=== PATIENT | female | born 1985 | race Hispanic/Latino ===

== ENCOUNTER 2018-05-16 20:15 | Emergency (ER) | payer SELFPAY ==
[~2018-05-16] VITALS: Ht 162.6 cm; Wt 50.3 kg
[~2018-05-16 20:15] MED LIST: BENTYL20 MG; CHLORDIAZEPOXID25 MG PO; FLAGYL500 MG PO; PANTOPRAZOLE SO40 MG PO; zofran PO
[2018-05-16 21:29] LABS: BILIRUBIN,URINE NEGATIVE (NEGATIVE); CLARITY,URINE SL CLOUDY (CLEAR); COLOR,URINE YELLOW (YELLOW); KETONES,URINE NEGATIVE (NEGATIVE); LEUKOCYTE ESTERASE ,URINE 1+ (NEGATIVE); NITRITE,URINE POSITIVE (NEGATIVE); PREGNANCY TEST, URINE NEGATIVE (NEGATIVE); PROTEIN,URINE DIPSTICK TRACE (NEGATIVE); URINE UROBILINOGEN 0.2 mg/dL (0.2 - 1)
[2018-05-16] MEDS ORDERED: ONDANSETRON HCL 4 MG ORAL DISINTEGRATING TAB ONE (21:29)
[2018-05-16 21:41] LABS: BACTERIA,URINE MODERATE /HPF; EPITHELIAL CELLS,URINE MODERATE /LPF
[2018-05-16] MEDS ORDERED: ONDANSETRON HCL 4 MG ORAL DISINTEGRATING TAB PO ONE (21:45)
[2018-05-16] MEDS ORDERED: CEFTRIAXONE SOD 1 GM VIAL IM ONE (22:15)
[2018-05-16] MEDS ORDERED: ACETAMINOPHEN 325 MG TAB ONE (22:23)
== END 2018-05-16 22:47 | disposition home or self-care (01) ==
LOC: ER 20:15
DX: R30.0 Dysuria (principal); N30.91 Cystitis, unspecified with hematuria
CPT/HCPCS: 81001; 81025; 99283; J0696

== ENCOUNTER 2018-07-04 14:12 | Emergency (ER) | payer BC, OTHER ==
[~2018-07-04] VITALS: Ht 149.9 cm; Wt 52.2 kg
[2018-07-04] MEDS ORDERED: IBUPROFEN 600 MG TAB PO STA (14:29)
[2018-07-04] MEDS ORDERED: TETANUS/DIPHTHERIA TOX ADULT 0.5 ML SYR IM ONE (14:30)
[2018-07-04 16:23] VITALS: BP 129/85
--- OUTSIDE RECORDS SUMMARY | 2018-07-08 13:31 | XMS REPORT | Continuity of Care Document ---
Author Author [facility] Organization Interface Address Unknown Phone Unavailable Problems Problem Status Onset Date Classification Date Reported Comments Source Umbilical hernia without obstruction or gangrene 12/28/2017 03/27/2018 [facility] HERNIA REPAIR Active 10/15/2017 [facility] UNK Active 10/15/2017 [facility] Hypertrophic scar 03/27/2018 [facility] Anxiety disorder, unspecified 03/27/2018 [facility] Medications Medication Details Route Status Patient Instructions Ordering Provider Order Date Source tramadol hydrochloride 50 MG Oral Tablet 100 mg, Route: PO, Drug form: TAB, ONCE, Dosing Weight 55.455, kg, Start date: 12/19/17 10:53:00 CDT, Stop date: 12/19/17 10:53:00 CDT Inactive 12/19/2017 [facility] methocarbamol 500 mg oral tablet 500 mg=1 tab, PO, Q6H, PRN Spasms, X 7 day, # 28 tab, 0 Refill(s) No Longer Active 12/19/2017 [facility] Ondansetron 4 mg, 2 mL, Route: IVP, Drug form: INJ, ONCE, Dosing Weight 55.455, kg, PRN Nausea & Vomiting, Start date: 12/19/17 9:44:00 CDTNotes: (Same as: Zofran) MEDICATION WASTE Product Size: 4 mg Product Wasted: ___ mg Inactive 12/19/2017 [facility] Promethazine 6.25 mg, 0.25 mL, Route: IVPB, ONCE, Dosing Weight 55.455, kg, PRN Nausea & Vomiting, Start date: 12/19/17 9:44:00 CDTNotes: Do not give IV push. (Same as: Phenergan) Inactive 12/19/2017 [facility] Meperidine 12.5 mg, 0.5 mL, Route: IVP, Drug form: INJ, Q30Min, Dosing Weight 55.455, kg, PRN Other -See Comment, For shivering, Start date: 12/19/17 9:44:00 CDT, Duration: 2 doses or times, Stop date: Limited # of timesNotes: (Same as: Demerol) "Use Precaution in Elderly, Seizure disorders, and Renal impairment" Inactive 12/19/2017 [facility] Flumazenil 0.2 mg, 2 mL, Route: IVP, Drug form: INJ, PRN, Dosing Weight 55.455, kg, PRN Benzodiazepine Reversal, Initial dose, Start date: 12/19/17 9:44:00 CDT, Duration: 30 day, Stop date: 01/18/18 9:43:00 CDT Notes: (Same as: Romazicon) Inactive 12/19/2017 [facility] Naloxone 0.4 mg, 1 mL, Route: IVP, Drug form: INJ, Q2MIN, Dosing Weight 55.455, kg, PRN Narcotic Reversal, Start date: 12/19/17 9:44:00 CDT, Duration: 8 doses or times, Stop date: Limited # of timesNotes: Same as Narcan Inactive 12/19/2017 [facility] Diphenhydramine 12.5 mg, 0.25 mL, Route: IVP, Drug form: INJ, Q6H, Dosing Weight 55.455, kg, PRN Itching, Start date: 12/19/17 9:44:00 CDT, Duration: 30 day, Stop date: 01/18/18 9:43:00 CDTNotes: (Same as: Benadryl) Inactive 12/19/2017 [facility] Metoprolol 1 mg, 1 mL, Route: IVP, Drug form: INJ, Q5Min, Dosing Weight 55.455, kg, PRN Other -See Comment, Start date: 12/19/17 9:44:00 CDT, Duration: 5 doses or times, Stop date: Limited # of timesNotes: (Same as: Lopressor) Push over 2 minutes Inactive 12/19/2017 [facility] Morphine 2 mg, 2 mL, Route: IVP, Drug form: SOLN, Q5Min, Dosing Weight 55.455, kg, PRN Pain Score 4-6, Start date: 12/19/17 9:44:00 CDT, Duration: 5 doses or times, Stop date: Limited # of timesNotes: Preservative free. (Same as: Morphine Sulfate-PF) Inactive 12/19/2017 [facility] Dilaudid (ANES) Route: IV, Drug form: INJ, ONCE, Stop date: 12/19/17 9:28:00 CDT Inactive 12/19/2017 [facility] neostigmine (ANES) Route: IV, Drug form: INJ, ONCE, Stop date: 12/19/17 9:17:00 CDT Inactive 12/19/2017 [facility] glycopyrrolate (ANES) Route: IV, Drug form: INJ, ONCE, Stop date: 12/19/17 9:17:00 CDT Inactive 12/19/2017 [facility] ketOROLAC (ANES) IV, ONCE Inactive 12/19/2017 [facility] acetaminophen (ANES) Route: IV, Drug form: INJ, ONCE, Stop date: 12/19/17 8:22:00 CDT Inactive 12/19/2017 [facility] ondansetron (ANES) Route: IV, Drug form: INJ, ONCE, Stop date: 12/19/17 8:22:00 CDT Inactive 12/19/2017 [facility] dexamethasone (ANES) Route: IV, Drug form: INJ, ONCE, Stop date: 12/19/17 8:22:00 CDT Inactive 12/19/2017 [facility] fentaNYL (ANES) Route: IV, Drug form: INJ, ONCE, Stop date: 12/19/17 8:12:00 CDT Inactive 12/19/2017 [facility] rocuronium (ANES) Route: IV, Drug form: INJ, ONCE, Stop date: 12/19/17 8:12:00 CDT Inactive 12/19/2017 [facility] lidocaine (ANES) Route: IV, Drug form: INJ, ONCE, Stop date: 12/19/17 8:12:00 CDT Inactive 12/19/2017 [facility] propofol (ANES) Route: IV, Drug form: INJ, ONCE, Stop date: 12/19/17 8:12:00 CDT Inactive 12/19/2017 [facility] ceFAZolin (ANES) Route: IV, Drug form: INJ, ONCE, Stop date: 12/19/17 8:07:00 CDT Inactive 12/19/2017 [facility] midazolam (ANES) Route: IV, Drug form: SOLN, ONCE, Stop date: 12/19/17 8:07:00 CDT Inactive 12/19/2017 [facility] ceFAZolin + Sodium Chloride 0.9% IV 100 mL 2 gm, Route: IVPB, PRE OP, Start date: 12/19/17 8:00:00 CDT, Duration: 1 doses or times, ABX Indication: Surgical ProphylaxisNotes: (Same As: Rima Tam) MEDICATION WASTE Product Size: 1000 mg Product Wasted: ___ mg Inactive 12/19/2017 [facility] gabapentin 300 MG Oral Capsule 300 mg, PO, TID, 0 Refill(s) Active 12/19/2017 [facility] minocycline 100 mg oral capsule 100 mg, PO, BID, 0 Refill(s) Active 12/19/2017 [facility] Ondansetron 4 MG Disintegrating Tablet [Zofran] 4 mg, PO, Q6H, 0 Refill(s) Active 12/19/2017 [facility] celecoxib 200 mg oral capsule 100 mg, PO, BID, 0 Refill(s) Active 12/19/2017 [facility] Lactated Ringers Injection IV (ANES) 1000 mL Route: IV, Total Volume: 1,000, Start date: 12/19/17 7:10:00 CDT, Stop date: 12/19/17 8:10:00 CDT Inactive 12/19/2017 [facility] Calcium Chloride 0.0014 MEQ/ML / Potassium Chloride 0.004 MEQ/ML / Sodium Chloride 0.103 MEQ/ML / Sodium Lactate 0.028 MEQ/ML Injectable Solution 1,000 mL, Rate: 25 ml/hr, Infuse over: 40 hr, Route: IV, Dosing Weight 55.455 kg, Total Volume: 1,000, Start date: 12/19/17 6:22:00 CDT, Duration: 30 day, Stop date: 01/18/18 6:21:00 CDT, 1.55, m2 Inactive 12/19/2017 [facility] Hydroxyzine 25 mg=1 tab, PO, Bedtime Active 12/06/2017 [facility] buPROPion 150 mg/12 hours (SR) oral tablet, extended release 150 mg=1 tab, PO, Daily, 0 Refill(s) Active 12/06/2017 [facility] Allergies, Adverse Reactions, Alerts Substance Category Reaction Severity Reaction type Status Date Reported Comments Source HYDROcodone Assertion Drug allergy Active [facility] Immunizations Immunization Date Given Site Status Last Updated Comments Source Results Order Name Results Value Reference Range Date Interpretation Comments Source URINE CHEM U Preg Negative (12/19/17 6:25 AM) Negative 12/19/2017 [facility] Vital Signs Vital Sign Value Date Comments Source Systolic (mm Hg) 106 12/19/2017 [facility] Diastolic (mm Hg) 71 12/19/2017 [facility] Respitory Rate 11 12/19/2017 [facility] Systolic (mm Hg) 109 12/19/2017 [facility] Diastolic (mm Hg) 73 12/19/2017 [facility] Respitory Rate 8 12/19/2017 [facility] Systolic (mm Hg) 112 12/19/2017 [facility] Diastolic (mm Hg) 75 12/19/2017 [facility] Respitory Rate 16 12/19/2017 [facility] BMI Calculated 23.88 12/06/2017 [facility] Height 152.4 cm 12/06/2017 [facility] Weight 55.455 12/06/2017 [facility] Heart Rate 82 12/06/2017 [facility] Temperature Oral (F) 98.2 F 12/06/2017 [facility] Encounters Location Location Details Encounter Type Encounter Number Reason For Visit Attending Provider ADM Date DC Date Status Source [facility] Day Surgery [id number] Jimmie Banerji 12/19/2017 12/19/2017 [facility] Procedures Procedure Code Date Perfomer Comments Source Operation [id number] 07/24/2014 [facility] Bilateral tubal ligation [id number] 01/21/2007 [facility]
== END 2018-07-04 16:30 | disposition home or self-care (01) ==
LOC: ER 14:12
DX: S80.872A Other superficial bite, left lower leg, initial encounter (principal); W54.0XXA Bitten by dog, initial encounter; F41.9 Anxiety disorder, unspecified; F32.9 Major depressive disorder, single episode, unspecified
CPT/HCPCS: 90471; 90714; 99283

== ENCOUNTER 2018-12-12 13:59 | Emergency (ER) | payer OTHER | END 2018-12-12 15:35 | disposition short-term general hospital (02) | LOC: ER 13:59 | DX: R06.02 Shortness of breath (principal) ==

== ENCOUNTER 2019-12-17 09:23 | Emergency (ER) | payer OTHER ==
[~2019-12-17] VITALS: Ht 149.9 cm; Wt 52.2 kg
--- OUTSIDE RECORDS SUMMARY | 2019-12-17 09:26 | XMS REPORT ---
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 Allergies, Adverse Reactions, Alerts Allergy Name Allergy Type Status Severity Reaction(s) Onset Date Inactive Date Treating Clinician Comments hydrocodone DA Active [place] 2019-02-11 00:00:00 acetaminophen DA Active [place] 2019-02-11 00:00:00 hydrocodone DA Active [place] 2015-06-28 00:00:00 acetaminophen DA Active [place] 2015-06-28 00:00:00 Medications This patient has no known medications. Results Test Description Test Time Test Comments Text Results Atomic Results Result Comments - CTA CHEST FOR PE 2019-12-14 19:23:00 Name: ELMIRA MARTIN [facility] : 1985 Age/S: 34 / F [address] [facility] Unit #: [id number] Loc: [place] [address] Phys: Nando St MD Acct: [id number] Dis Date: Status: REG ER PHONE #: [phone] Exam Date: 12/14/2019 1900 FAX #: [phone] Reason: short of breath, elevated dimer EXAMS: CPT CODE: [id number] [place] [id number] HISTORY: Shortness of breath and elevated d-dimer. COMPARISON: Chest x-ray from same day CTA CHEST: 3-D images. 100 mL of Isovue-370. Automated exposure control. Location: TH. No pulmonary embolism. Unremarkable aorta. Well- opacified SVC and the neck vasculature. Unremarkable thyroid glands. Esophageal wall is mildly thickened. Correlate for esophagitis. No pathologic adenopathy. Cardiac silhouette is mildly enlarged. No pericardial effusion. Visualized upper abdomen is unremarkable. The subcutaneous tissues and the musculature are appearance. No lytic or blastic lesions are noted within the bony skeleton. The lungs are clear of infiltrates, effusion or congestion. No bronchiectasis, honeycombing or fibrosis or endobronchial lesions. IMPRESSION: No pulmonary embolism. Unremarkable aorta. The lungs are clear. at 1923 Reported and signed by: Jhonatan Baron M.D. CC: Etta Aragon MD; Nando St MD Technologist:Silvino Ontiveros RT(R) CTDI: DLP: Trnscb Date/Time: 12/14/2019 (1922) [email or web address] Orig Print D/T: S: 12/14/2019 (1925) PAGE 1 Signed Report BASIC METABOLIC PANEL 2019-12-14 18:24:00 SODIUM (test code=NA) 138 mmol/L 135-148 POTASSIUM (test code=K) 3.8 mmol/L 3.5-5.1 CHLORIDE (test code=CL) 103 mmol/L 101-109 CARBON DIOXIDE (test code=CO2) 29.9 mmol/L 21-32 ANION GAP (test code=GAP) 9 mmol/L 10-20 GLUCOSE (test code=GLU) 105 mg/dL 74-106 BLOOD UREA NITROGEN (test code=BUN) 14 mg/dL 3-21 GLOMERULAR FILTRATION RATE (test code=GFR) > 60 mL/min >=60 Estimated GFR by using Modified MDRD formula.Chronic kidney disease is defined as either kidney damageor GFR <60 mL/min/1.73 m2 for >3 months. CREATININE (test code=CREAT) 0.96 mg/dL 0.55-1.3 BUN/CREATININE RATIO (test code=BUN/CREA) 14.6 10-20 CALCIUM (test code=CA) 8.5 mg/dL 8.4-10.2 HCG SERUM [id number] 18:24:00* Test Item Value Reference Range Comments HCG SERUM QUAL (test code=HCGQL) NEGATIVE NEGATIVE This HCGQL test is NOT applicable for MALE patients.Check with nurse about probable order error.If Tumor Marker Test needed, nurse should order test "HCGTU"(Test #550.03498) [id number] 18:24:00* Test Item Value Reference Range Comments TROPONIN-I (test code=TROPI) <0.015 ng/mL 0.00-0.056 [id number] 18:22:00* Test Item Value Reference Range Comments D-DIMER (test code=DDIMER) 685 ng/ml < 600 Results called to JAMEY [email or web address] 12/14/19 1821Critical results verified and read back by Nurse? Y - XR CHEST 1 [id number] 18:06:00 Name: ELMIRA MARTIN [facility] : 1985 Age/S:34 /F [address] [facility] Unit#:[id number] Loc: [place] [address] Phys: Nando St MD Dis Date: PHONE #: [phone] Status: REG ER FAX #: [phone] Exam Date: 12/14/2019 Reason: CHEST PAIN EXAMS: CPT CODE: [id number] XR CHEST 1 V 70625 HISTORY: Chest pain. COMPARISON: August 02, 2009. Location: . No acute infiltrates, effusion or congestion is noted. The cardiac and mediastinal silhouette are within normal limits. IMPRESSION: No acute infiltrates, effusion or congestion. at 1806 Reported and signed by: Jhonatan Baron M.D. CC: Etta Aragon MD; Nando St MD Technologist: Silvino HOUSE(R) Trnscrpt Data: 12/14/2019 (1805) [email or web address] Orig Print D/T: S: 12/14/2019 (9512) PAGE 1 Signed Report B-TYPE NATRIURETIC [id number] 18:05:00* Test Item Value Reference Range Comments B-TYPE NATRIURETIC PEPTIDE (test code=BNP) < 5.0 pg/mL 0-100 BASIC METABOLIC [id number] 18:02:00* Test Item Value Reference Range Comments SODIUM (test code=NA) 138 mmol/L 135-148 POTASSIUM (test code=K) 3.8 mmol/L 3.5-5.1 CHLORIDE (test code=CL) 103 mmol/L 101-109 CARBON DIOXIDE (test code=CO2) 29.9 mmol/L 21-32 ANION GAP (test code=GAP) 9 mmol/L 10-20 GLUCOSE (test code=GLU) 105 mg/dL 74-106 BLOOD UREA NITROGEN (test code=BUN) 14 mg/dL 3-21 GLOMERULAR FILTRATION RATE (test code=GFR) > 60 mL/min >=60 Estimated GFR by using Modified MDRD formula.Chronic kidney disease is defined as either kidney damageor GFR <60 mL/min/1.73 m2 for >3 months. CREATININE (test code=CREAT) 0.96 mg/dL 0.55-1.3 BUN/CREATININE RATIO (test code=BUN/CREA) 14.6 10-20 CALCIUM (test code=CA) 8.5 mg/dL 8.4-10.2 HCG SERUM [id number] 18:02:00* Test Item Value Reference Range Comments HCG SERUM QUAL (test code=HCGQL) NEGATIVE NEGATIVE This HCGQL test is NOT applicable for MALE patients.Check with nurse about probable order error.If Tumor Marker Test needed, nurse should order test "HCGTU"(Test #550.46951) [id number] 18:02:00* Test Item Value Reference Range Comments TROPONIN-I (test code=TROPI) ng/mL 0-0.045 BASIC METABOLIC [id number] 17:58:00* Test Item Value Reference Range Comments SODIUM (test code=NA) mmol/L 135-148 POTASSIUM (test code=K) mmol/L 3.5-5.1 CHLORIDE (test code=CL) mmol/L 101-109 CARBON DIOXIDE (test code=CO2) mmol/L 21-32 ANION GAP (test code=GAP) mmol/L 10-20 GLUCOSE (test code=GLU) mg/dL 74-106 BLOOD UREA NITROGEN (test code=BUN) mg/dL 3-21 GLOMERULAR FILTRATION RATE (test code=GFR) mL/min >=60 CREATININE (test code=CREAT) mg/dL 0.55-1.3 BUN/CREATININE RATIO (test code=BUN/CREA) 10-20 CALCIUM (test code=CA) mg/dL 8.4-10.2 HCG SERUM [id number] 17:58:00* Test Item Value Reference Range Comments HCG SERUM QUAL (test code=HCGQL) NEGATIVE NEGATIVE This HCGQL test is NOT applicable for MALE patients.Check with nurse about probable order error.If Tumor Marker Test needed, nurse should order test "HCGTU"(Test #550.63032) [id number] 17:58:00* Test Item Value Reference Range Comments TROPONIN-I (test code=TROPI) ng/mL 0-0.045 CBC W/O [id number] 17:46:00* Test Item Value Reference Range Comments WHITE BLOOD CELL (test code=WBC) 4.0 K/mm3 4.5-12.5 RED BLOOD CELL (test code=RBC) 4.29 mill/mm3 3.7-5.2 HEMOGLOBIN (test code=HGB) 13.5 gram/dL 11.5-15.5 HEMATOCRIT (test code=HCT) 39.9 % 36.0-46.0 MEAN CELL VOLUME (test code=MCV) 93.0 fL 80-98 MEAN CELL HGB (test code=MCH) 31.5 picogram 27.0-33.0 MEAN CELL HGB CONCETRATION (test code=MCHC) 33.8 gram/dL 33.0-36.0 RED CELL DISTRIBUTION WIDTH (test code=RDW) 12.1 % 11.6-16.2 RED CELL DISTRIBUTION WIDTH SD (test code=RDW-SD) 42.3 fL 37.0-51.0 PLATELET COUNT (test code=PLT) 230 K/mm3 150-450 MEAN PLATELET VOLUME (test code=MPV) 10.5 fL 6.7-11.0
[2019-12-17] MEDS ORDERED: ALBUTEROL SULF 0.083% NEB SOLN 3 ML NEB NEB STA (11:19)
[2019-12-17] MEDS ORDERED: IPRATROPIUM BROMIDE 0.02% 2.5 ML NEB NEB STA (11:19)
[2019-12-17] MEDS ORDERED: DEXAMETHASONE SOD PHOS 10 MG/1 ML VIAL IM ONE (11:30)
--- NOTE | 2019-12-17 12:19 | Diagnostic Imaging Report ---
Chest, 1 view, 12/17/2019. History: Shortness of breath and cough. Comparison: None available. Findings: The cardiomediastinal silhouette and pulmonary vasculature are within normal limits for a portable exam. There is no focal consolidation or pleural effusion. There are no acute osseous or soft tissue abnormalities. Impression: No acute cardiopulmonary abnormality. Signed by: Jarrell Bowman on 12/17/2019 12:16 PM
== END 2019-12-17 12:32 | disposition home or self-care (01) ==
LOC: ER 09:23
DX: R50.9 Fever, unspecified (principal); R05 Cough; J20.9 Acute bronchitis, unspecified; F41.9 Anxiety disorder, unspecified
CPT/HCPCS: 71045; 81025; 83518; 87070; 87400; 94640; 99284; J1100

== ENCOUNTER 2020-10-05 16:48 | Emergency (ER) | payer OTHER ==
[~2020-10-05] VITALS: Ht 149.9 cm; Wt 52.2 kg
[2020-10-05] MEDS ORDERED: IBUPROFEN 600 MG TAB PO STA (17:43)
[2020-10-05] MEDS ORDERED: IBUPROFEN 600 MG TAB ONE (17:54)
== END 2020-10-05 17:56 | disposition home or self-care (01) ==
LOC: ER 17:26
DX: R05 Cough (principal); R06.02 Shortness of breath; Z20.822 Contact with and (suspected) exposure to COVID-19; F41.9 Anxiety disorder, unspecified; F32.9 Major depressive disorder, single episode, unspecified
CPT/HCPCS: 99282